=== PATIENT | female | born 1970 | race Caucasian/White ===

== ENCOUNTER 2025-11-08 11:50 | Emergency (ER) | payer MEDICAID, SELFPAY ==
[2025-11-08] MEDS ORDERED: predniSONE 20 MG TAB ONE (12:42)
[2025-11-08] MEDS ORDERED: HYDROcodone/Acetaminophen 5/325 mg Tablet ONE (12:42)
== END 2025-11-08 12:45 | disposition home or self-care (01) ==
LOC: BURERS 11:50
DX: M54.32 Sciatica, left side (principal); F17.210 Nicotine dependence, cigarettes, uncomplicated
CPT/HCPCS: 99283; J7512